=== PATIENT | female | born 1990 | race Caucasian/White ===

== ENCOUNTER 2023-01-02 20:56 | Day surgery (SDC) | payer OTHER ==
[2023-01-02 22:00] LABS: APPEARANCE,URINE CLEAR (Clear); BILIRUBIN,URINE NEGATIVE (Negative); COLOR,URINE YELLOW (Yellow); GLUCOSE,URINE NEGATIVE (Negative); KETONES,URINE NEGATIVE (Negative); LEUKOCYTE ESTERASE,URINE NEGATIVE (Negative); NITRITE,URINE NEGATIVE (Negative); OCCULT BLOOD,URINE NEGATIVE (Negative); PROTEIN,URINE NEGATIVE (Negative); UROBILINOGEN,URINE 0.2 (0.2-1.0)
[2023-01-02 22:21] LABS: BACTERIA,URINE RARE /hpf (FEW); MUCUS,URINE NOT SEEN /hpf (FEW); RBC,URINE 0-5 /hpf (0-5); SQUAMOUS EPITHELIAL CELLS,UR NOT SEEN /hpf (0-5); WBC,URINE 0-5 /hpf (0-5)
[2023-01-02 23:15] LABS: HEMATOCRIT 37.1 % (34.1-44.9); HEMOGLOBIN 12.4 gm/dl (11.2-15.7); MEAN CORPUSCULAR HEMOGLOBIN 30.2 pg (25.6-32.2); MEAN CORPUSCULAR HGB CONC 33.4 g/dl (32.2-35.5); MEAN CORPUSCULAR VOLUME 90.3 fl (79.4-94.8); MEAN PLATELET VOLUME 8.8 fl (9.4-12.3); PLATELET COUNT,PLT 217 K/mm3 (182-369); RED BLOOD CELL COUNT 4.11 M/mm3 (3.98-5.22); WHITE BLOOD CELL COUNT,WBC 5.99 K/mm3 (3.98-10.04)
[2023-01-02 23:40] LABS: BAND PERCENT MAN 0 % (0-10); BASOPHILS PERCENT MAN 0 (0.1-1.2); EOSINOPHILS PERCENT MAN 4 % (0.7-5.8); LYMPHOCYTES % ATYPICAL MANUAL 0 %; LYMPHOCYTES PERCENT MAN 28 % (20-40); MONOCYTES PERCENT MAN 4 % (2-10); PLATELET COUNT ESTIMATE ADEQUATE
[2023-01-02 23:41] LABS: A/G RATIO 1.3 (1-2); ANION GAP 12.3 (5-15); BILIRUBIN TOTAL 0.3 mg/dL (0.2-1.0); CALCIUM 9.1 mg/dL (8.5-10.1); EST CRCL DRUG DOSING (CG) 79.99 mL/min; POTASSIUM,K 4.3 mEq/L (3.5-5.1); PROTEIN TOTAL,TP 7.2 g/dl (6.4-8.2)
[2023-01-03] MEDS ORDERED: Acetaminophen 325 MG Tab PO ONE (00:19)
[2023-01-03] MEDS ORDERED: Succinylcholine 200 MG/10 ML MDV ONE (01:40)
[2023-01-03] MEDS ORDERED: Propofol 200 MG/20 ML SDV ONE (01:41)
[2023-01-03] MEDS ORDERED: Lidocaine 1% 6 ML ONE (01:43)
[2023-01-03] MEDS ORDERED: Ketamine 500 mg/10 ML MDV ONE (01:45)
[2023-01-03] MEDS ORDERED: fentaNYL 250 MCG/5 ML SDV ONE (01:56)
[2023-01-03] MEDS ORDERED: Bupivacaine 0.5% 30 ML SDV ONE (02:14)
[2023-01-03] MEDS ORDERED: fentaNYL 100 MCG/2 ML SDV IVPUSH PRN (02:58)
[2023-01-03] MEDS ORDERED: HYDROmorphone 0.5 MG/0.5 ML Syringe IVPUSH PRN (02:58)
[2023-01-03] MEDS ORDERED: Rocuronium 50 MG/5 ML Vial ONE (03:00)
[2023-01-03] MEDS ORDERED: ceFAZolin 2 GM Vial ONE (03:02)
[2023-01-03] MEDS ORDERED: Ondansetron 4 MG/2 ML SDV ONE (03:17)
[2023-01-03] MEDS ORDERED: Dexamethasone 4 MG/ML 5 ML MDV ONE (03:17)
[2023-01-03] MEDS ORDERED: Neostigmine Methylsulfate 10 MG/10 ML MDV ONE (03:21)
[2023-01-03] MEDS ORDERED: Dexmedetomidine 200 MCG/2 ML SDV ONE (03:50)
[2023-01-03] MEDS ORDERED: Ketorolac 30 MG/ML SDV ONE (03:52)
[2023-01-03] MEDS ORDERED: Lactated Ringers 1,000 ML ONE (16:09)
== END 2023-01-03 | disposition home or self-care (01) ==
LOC: JD.ED 20:56 → JD.SDS 01-03 02:53
PROVIDERS: ATTEND Obstetrics & Gynecology
DX: O00.101 Right tubal pregnancy without intrauterine pregnancy (principal); D28.2 Benign neoplasm of uterine tubes and ligaments; I47.1 Supraventricular tachycardia; G90.A Postural orthostatic tachycardia syndrome [POTS]; G43.909 Migraine, unspecified, not intractable, without status migrainosus; F32.A Depression, unspecified; Z87.891 Personal history of nicotine dependence; Z88.0 Allergy status to penicillin; Z88.1 Allergy status to other antibiotic agents; Z88.8 Allergy status to other drugs, medicaments and biological substances; Z79.82 Long term (current) use of aspirin; Z79.899 Other long term (current) drug therapy; Z90.49 Acquired absence of other specified parts of digestive tract; Z98.890 Other specified postprocedural states
CPT/HCPCS: 36415; 59151; 76817; 80053; 81001; 84702; 85007; 85027; 86850; 86900; 86901; 99285; A9270; J0330; J0690; J1100; J1885; J2405; J2704; J2710; J3010; J3490; J7120